=== PATIENT | male | born 2000 | race Caucasian/White ===

== ENCOUNTER 2024-04-28 17:47 | Emergency (ER) | payer SELFPAY ==
--- OUTSIDE RECORDS SUMMARY | 2024-04-28 17:50 | XMS REPORT | Continuity of Care Document ---
Author Name Unknown Address [address] [facility] [place] [address] [facility] thconnect Address [address] [facility] [address] [place] [address] Care Team Providers Care Registered Respiratory Therapist Name Role Phone PCP, PATIENT DOES NOT HAVE A Primary Care Physic dennys Unavailable FRANDY GOMEZ Attending Clinician Unavaila Frandy Valle Attending Clinician + [phone] BENITO GIBBS Attending Clinician Unavailable Benito Gibbs MD Attending Clinician [phone] GENO VELA Attending Clinician Unavailab Geno Arenas Attending Clinician [phone] SONIA JUÁREZ Attending Clinician Unavailab Sonia Napoles DO Attending Clinician [phone] JESUS RENAE Attending Clinician Unavailable Jesus Paniagua Attending Clinician [phone] Lazaro Leyva Attending Clinician Unavailable Fernie Canela Attending Clinician [phone] Doctor Unassigned, [place] Attending Clinician Carlos Garcia DO Attending Clinician [phone] EBRAHIM, RANIA Admitting Clinician Unavailable Physician, No Primary or Family Admitting Clinic dennys Unavailable Payers Payer Name Policy Type Policy Number Effective Date Expirati on Date Source [facility] [id number] 2020 00:00:00 Problems Condition Name Condition Details Condition Category Status Onset Date Resolution Date Last Treatment Date Treating Clinician Comments Source Major depression , chronic Major depression , chronic Disease Active 05-21 00:00: [address] [facility] Anxiety Anxiety Disease Active 05-21 00:00: 00 [facility] Suicidal thoughts Suicidal thoughts Disease Active 05-21 00:00: 00 [facility] Allergies, Adverse Reactions, Alerts Allergy Name Allergy Type Status Severity Reaction(s) Onset Date Inactive Date Treating Clinician Comments Source No Known Allergie s DA Active U 01-07 00:00: 00 [facility] No Known Allergie s DA Active U 01-07 00:00: 00 [facility] Ibuprofe n Propensi ty to adverse reaction s Active Hives 05-11 00:00: 00 [facility] IBUPROFE N DRUG INGREDI Active Hives 05-11 00:00: 00 [facility] Social History Social Habit Start Date Stop Date Quantity Comments Source [facility] SDOH Alcohol Frequency [facility] History SDOH Alcohol Std Drinks [facility] History SDOH Alcohol Binge [facility] Alcoholic beverage intake 2023-12-14 00:00:00 2023-12-14 00:00:00 Current drinker of alcohol (finding) [facility] Exposure to SARS-CoV-2 (event) 2022-08-14 00:00:00 2022-08-24 00:36:00 Not sure [facility] Alcohol intake 2020-09-03 00:00:00 2020-09-03 00:00:00 Current drinker of alcohol (finding) [facility] History of Social function 2018-11-08 00:00:00 2018-11-08 00:00:00 [facility] Tobacco use and exposure 2018-05-11 00:00:00 2018-05-11 00:00:00 Smokeless tobacco non-user [facility] Alcohol Comment 2018-05-11 00:00:00 2018-05-11 00:00:00 one per week [facility] Sex assigned at 2000 00:00:00 2000 00:00:00 [facility] Smoking Status Start Date Stop Date Source Never smoked tobacco [facility] Medications Ordered Medication Name Filled Medication Name Start Date Stop Date Current Medication? Ordering Clinician Indication Dosage Frequency Signature (SIG) Comments Components Source famotidine (PEPCID (PF)) injection 20 mg 08-24 07:00: 00 08-24 07:05 :00 No 20mg 20 mg, Slow IV Push, ONCE, 1 dose, On Mon08/24/22 at 0200[facility] diphen[facility]INE (BENADRYL) injection 25 mg 08-24 07:00: 00 08-24 07:05 :00 No 25mg 25 mg, Slow IV Push, ONCE, 1 dose, On Mon08/24/22 at 0200, STAT [facility] dexamethaso ne sod phos PF injection 10 mg 08-24 06:00: 00 08-24 06:03 :00 No 10mg 10 mg, Slow IV Push, ONCE, 1 dose, On Mon08/24/22 at 0100, 1 mL [facility] famotidine (PEPCID (PF)) injection 20 mg 08-24 06:00: 00 08-24 06:00 :00 No 20mg 20 mg, Slow IV Push, ONCE, 1 dose, [facility]08[facility]24/[facility] (BENADRYL) [facility] 25 mg 08-24 06:00: 00 08-24 06:02 :00 No 25mg 25 mg, Slow IV Push, ONCE, 1 dose, On Mon08/24/22 at 0100, STAT [facility] predniSONE 20 mg tablet 08-24 00:00: 00 Yes [id number] Take 1 tablet by mouth daily until gone [facility] iopamidol (ISOVUE 370-500 mL) injection 60 mL 11-26 21:15: 00 11-26 19:55 :00 No [id number] 60mL 60 mL, Intravenou s, ONCE, 1 dose, On Mon11/26/21 at 1615, Routine [facility] NaCl 0.9% (NS) bolus infusion 1,000 mL 11-26 19:15: 00 11-26 19:19 :00 No 1000mL at 999 mL/hr, 1,000 mL, IV Infusion, ONCE, 1 dose, On Mon11/26/21 at 1415[facility] famotidine (PEPCID (PF)) injection 20 mg 11-26 18:15: 00 11-26 18:21 :00 No 20mg 20 mg, Slow IV Push, ONCE, 1 dose, On Mon11/26/21 at 1315, [facility] maalox:diph enhydrAMINE :lidocaine 2 % viscous 1:1:1 ([facility] oral suspension 15 mL 11-26 18:15: 00 11-26 18:22 :00 No 15mL 15 mL, Oral, ONCE, 1 dose, On Mon11/26/21 at 1315, Routine [facility] ondansetron (ZOFRAN (PF)) injection 4 mg 11-26 18:15: 00 11-26 18:21 :00 No 4mg 4 mg, Slow IV Push, ONCE, 1 dose, On Mon11/26/21 at 1315, [facility] dicyclomine 10 mg capsule 11-26 00:00: 00 12-04 04:59 :00 No [id number] 10mg Take 1 capsule by mouth 4 (four) times daily for 7 days. [facility] ondansetron 4 mg disintegrat ing tablet 11-26 00:00: 00 12-02 04:59 :00 No [id number] 4mg Take 1 tablet by mouth every 8 (eight) hours for 5 days. Univers y [facility] No known medications No Un carlene ity [facility] No known medications No Un carlene [facility] Vital Signs Vital Name Observation Time Observation Value Comments Pippa recinos Systolic blood pressure 2023-12-14 05:47:00 147 mm[Hg] [facility] Diastolic blood pressure 2023-12-14 05:47:00 91 mm[Hg] [facility] Heart rate 2023-12-14 05:47:00 86 /min [facility] Body temperature 2023-12-14 05:47:00 36.5 Cat [facility] Respiratory rate 2023-12-14 05:47:00 18 /min [facility] Body height 2023-12-14 05:47:00 167.6 cm [facility] Body weight 2023-12-14 05:47:00 140.615 kg [facility] BMI 2023-12-14 05:47:00 50.04 kg/m2 [facility] Oxygen saturation in Arterial blood by Pulse oximetry 2023-12-14 05:47:00 100 /min [facility] Systolic blood pressure 2023-05-29 18:55:23 141 mm[Hg] [facility] Diastolic blood pressure 2023-05-29 18:55:23 73 mm[Hg] [facility] Heart rate 2023-05-29 18:55:23 78 /min [facility] Respiratory rate 2023-05-29 18:55:23 16 /min [facility] Oxygen saturation in Arterial blood by Pulse oximetry 2023-05-29 18:55:23 99 /min [facility] Body temperature 2023-05-29 16:24:00 36.72 Cat [facility] Body height 2023-05-29 16:24:00 167.6 cm [facility] Body weight 2023-05-29 16:24:00 138.801 kg [facility] BMI 2023-05-29 16:24:00 49.39 kg/m2 [facility] Systolic blood pressure 2022-10-23 16:20:00 118 mm[Hg] [facility] Diastolic blood pressure 2022-10-23 16:20:00 78 mm[Hg] [facility] Heart rate 2022-10-23 16:20:00 88 /min [facility] Respiratory rate 2022-10-23 16:20:00 20 /min [facility] Oxygen saturation in Arterial blood by Pulse oximetry 2022-10-23 16:20:00 99 /min [facility] Body temperature 2022-10-23 13:58:00 37.72 Cat [facility] Body height 2022-10-23 13:57:00 167.6 cm [facility] Body weight 2022-10-23 13:57:00 132.224 kg [facility] BMI 2022-10-23 13:57:00 47.05 kg/m2 [facility] Systolic blood pressure 2022-08-24 07:00:00 145 mm[Hg] [facility] Diastolic blood pressure 2022-08-24 07:00:00 90 mm[Hg] [facility] Heart rate 2022-08-24 07:00:00 86 /min [facility] Respiratory rate 2022-08-24 07:00:00 20 /min [facility] Oxygen saturation in Arterial blood by Pulse oximetry 2022-08-24 07:00:00 99 /min [facility] Body temperature 2022-08-24 05:39:00 37 Cat [facility] Body height 2022-08-24 05:39:00 167.6 cm [facility] Body weight 2022-08-24 05:39:00 140.706 kg [facility] BMI 2022-08-24 05:39:00 50.07 kg/m2 [facility] Systolic blood pressure 2021-11-26 20:00:00 130 mm[Hg] [facility] Diastolic blood pressure 2021-11-26 20:00:00 72 mm[Hg] [facility] Heart rate 2021-11-26 20:00:00 76 /min [facility] Respiratory rate 2021-11-26 20:00:00 18 /min [facility] Oxygen saturation in Arterial blood by Pulse oximetry 2021-11-26 20:00:00 99 /min [facility] Body temperature 2021-11-26 18:13:09 37.22 Cat [facility] Body height 2021-11-26 17:59:00 167.6 cm [facility] Body weight 2021-11-26 17:59:00 127.007 kg [facility] BMI 2021-11-26 17:59:00 45.19 kg/m2 [facility] Systolic blood pressure 2020-09-03 14:43:00 151 mm[Hg] [facility] Diastolic blood pressure 2020-09-03 14:43:00 109 mm[Hg] [facility] Heart rate 2020-09-03 14:43:00 92 /min [facility] Body temperature 2020-09-03 14:43:00 37.06 Cat [facility] Respiratory rate 2020-09-03 14:43:00 18 /min [facility] Body weight 2020-09-03 14:43:00 145.151 kg [facility] BMI 2020-09-03 14:43:00 51.65 kg/m2 [facility] Oxygen saturation in Arterial blood by Pulse oximetry 2020-09-03 14:43:00 99 /min [facility] Systolic blood pressure 2020-08-24 07:34:00 162 mm[Hg] [facility] Diastolic blood pressure 2020-08-24 07:34:00 109 mm[Hg] [facility] Heart rate 2020-08-24 07:34:00 123 /min [facility] Body temperature 2020-08-24 07:34:00 37.28 Cat [facility] Respiratory rate 2020-08-24 07:34:00 20 /min [facility] Body weight 2020-08-24 07:34:00 145.151 kg [facility] BMI 2020-08-24 07:34:00 51.65 kg/m2 [facility] Oxygen saturation in Arterial blood by Pulse oximetry 2020-08-24 07:34:00 99 /min [facility] Procedures Procedure Date / Time Performed Performing Clinician Source EKG-12 LEAD 2023-05-29 18:41:52 Benito Gibbs [facility] TROPONIN I 2023-05-29 17:34:00 Benito Gibbs [facility] BASIC METABOLIC PANEL (NA, K, CL, CO2, GLUCOSE, BUN, CREATININE, CA) 2023-05-29 17:34:00 Benito Gibbs [facility] CBC WITH DIFF 2023-05-29 17:34:00 Benito Gibbs [facility] ASSIGNMENT OF BENEFITS 2023-05-29 16:41:05 Docto r Unassigned, [place] [facility] CONSENT/REFUSAL FOR DIAGNOSIS AND TREATMENT 2023-05-29 16:22:27 Doctor Unassigned, [place] [facility] CREATINE KINASE 2022-10-23 14:47:00 Geno Vela [facility] TROPONIN I 2022-10-23 14:47:00 Geno Vela Un [facility] THYROID STIMULATING HORMONE 2022-10-23 14:47:00 Geno Vela [facility] COMP. METABOLIC PANEL ([id number]) 2022-10-23 14:47:00 Geno Vela [facility] CBC WITH DIFF 2022-10-23 14:47:00 [facility] FOR GROUP A 2022-10-23 14:47:00 Geno Vela [facility] COVID-19 (ID NOW RAPID TESTING) 2022-10-23 14:47:00 Geno Vela [facility] ASSIGNMENT OF BENEFITS 2022-10-23 14:29:44 Docto r Unassigned, [place] [facility] CONSENT/REFUSAL FOR DIAGNOSIS AND TREATMENT 2022-10-23 13:53:17 Doctor Unassigned, [place] [facility] NOTICE OF PRIVACY PRACTICES 2022-08-24 05:29:09 Doctor Unassigned, [place] [facility] CONSENT/REFUSAL FOR DIAGNOSIS AND TREATMENT 2022-08-24 05:28:35 Doctor Unassigned, [place] [facility] CT ABDOMEN PELVIS W CONTRAST 2021-11-26 20:00:19 Jesus Renae [facility] XR KUB 2021-11-26 18:33:23 Jesus Renae [facility] LIPASE 2021-11-26 18:15:00 [facility] COMP. METABOLIC PANEL ([id number]) 2021-11-26 [facility]:15[facility] 2021-11-26 18:15:00 Jesus Renae [facility] URINALYSIS 2021-11-26 18:15:00 [facility] COVID-19 (ID NOW RAPID TESTING) 2021-11-26 18:15[facility]00 [facility] FOR [facility]AGNOSIS AND TREATMENT 2021-11-26 17:53:24 Doctor Unassigned, [place] [facility] NOTICE OF PRIVACY PRACTICES 2020-09-03 14:35:20 Doctor Unassigned, [place] [facility] CONSENT/REFUSAL FOR DIAGNOSIS AND TREATMENT 2020-09-03 14:35:07 Doctor Unassigned, [place] [facility] [place] RESUPERF WND BODY 7.6-12.5 CM 2020-08-24 07:41:00 Carlos Jennings [facility] Encounters Start Date/Time End Date/Time Encounter Type Admission Type Attending Clinicians Care Facility Care Department Encounter ID Source 2021-02-28 17:28:36 Emergency [facility] [id number] [facility] 2021-02-28 15:08:59 Emergency [facility] [id number] [facility] 2023-12-14 01:22:00 2023-12-14 01:23:00 Emergency X FRANDY GOMEZ [facility] ERT [id number] [facility] 2023-12-14 01:22:00 2023-12-14 01:23:00 Emergency Florina Frandy [facility] [id number] 350.1.13.10 4.2.7.2.686 [id number] [facility] 2023-05-29 10:25:00 2023-05-29 12:57:00 Emergency X BENITO GIBBS [facility] ERT [id number] [facility] 2023-05-29 10:25:00 2023-05-29 12:57:00 Emergency Benito Gibbs [facility] [id number] 350.1.13.10 4.2.7.2.686 [id number] [facility] 2022-10-23 08:59:00 2022-10-23 11:24:00 Emergency X NANO VELAHA [facility] ERT [id number] [facility] 2022-10-23 08:59:00 2022-10-23 11:24:00 Emergency Geno Vela Kriss [facility] [id number] 350.1.13.10 4.2.7.2.686 [id number] [facility] 2022-08-24 00:42:00 2022-08-24 03:05:00 Emergency X SONIA JUÁREZ [facility] ERT [id number] [facility] 2022-08-24 00:42:00 2022-08-24 03:05:00 Emergency Jenn Sonia [facility] 1..840.114 350.1.13.10 4.2.7.2.686 [id number] [facility] 2021-11-26 13:00:00 2021-11-26 15:28:00 Emergency X JESUS RENAE [facility] ERT [id number] [facility] 2021-11-26 13:00:00 2021-11-26 15:28:00 Emergency Jesus Renae [facility] 1.2.840.114 350.1.13.10 4.2.7.2.686 [id number] [facility] 2021-01-07 13:17:00 2021-01-07 14:34:00 Emergency Lazaro Astorga [facility] [id number] [facility] 2020-09-03 09:49:00 2020-09-03 10:52:00 Emergency Fernie Connolly [facility] 1.2.840.114 350.1.13.10 4.2.7.2.686 [id number] [facility] 2020-09-03 00:00:00 2020-09-03 00:00:00 Orders Only Doctor Unassigned, [place] [facility] 1.2.840.114 350.1.13.10 4.2.7.2.686 [id number] [facility] 2020-08-24 02:33:00 2020-08-24 03:25:00 Emergency aCrlos Jennings [facility] 1.2.840.114 350.1.13.10 4.2.7.2.686 [id number] [facility] Results Test Description Test Time Test Comments Results Result Co mments Source [facility] (NA, K, CL, CO2, GLUCOSE, BUN, CREATININE, CA)2023-05-29 18:13:34* Test Item Value Reference Range Interpretation Comme nts NA (test code = 8110260543) 139 mmol/L 135-145 K (test code = 6674012126) 4.5 mmol/L 3.5-5.0 CL (test code = 3339020700) 101 mmol/L 98-108 CO2 TOTAL (test code = 6436888409) 30 mmol/L 23-31 AGAP (test code = 6064742555) 8 2-16 BUN (test code = 8576551505) 13 mg/dL 7-23 GLUCOSE (test code = 4405614377) 102 mg/dL 70-110 CREATININE (test code = 7905098160) 0.94 mg/dL 0.60-1.25 CALCIUM (test code = 1130762936) 9.2 mg/dL 8.6-10.6 eGFR (test code = 27371-9) 115.4 mL/min/1.73m2 CKD-EPI eGFR (20 21). Assuming creatinine has been stable day-to-day for at least three months, the eGFR indicates Category G1 (>= 90 mL/min/1.73 m2) [facility] WITH [id number] 18:04:12* Test Item Value Reference Range Interpretation Comme nts WBC (test code = 6690-2) 11.23 See_Comment H [Automated [employer]] The system which generated this result transmitted reference range: 4.20 - 10.70 10*3/?L. The reference range was not used to interpret this result as normal/abnormal. RBC (test code = 789-8) 5.52 See_Comment [Automated [employer]] The system which generated this result transmitted reference range: 4.26 - 5.52 10*6/?L. The reference range was not used to interpret this result as normal/abnormal. HGB (test code = 718-7) 13.7 g/dL 12.2-16.4 HCT (test code = 4544-3) 43.1 % 38.4-49.3 MCV (test code = 787-2) 78.1 fL 81.7-95.6 L MCH (test code = 785-6) 24.8 pg 26.1-32.7 L MCHC (test code = 786-4) 31.8 g/dL 31.2-35.0 RDW-SD (test code = 96002-7) 40.4 fL 38.5-51.6 RDW-CV (test code = 788-0) 14.5 % 12.1-15.4 PLT (test code = 777-3) 346 See_Comment H [Automated [employer]] The system which generated this result transmitted reference range: 150 - 328 10*3/?L. The reference range was not used to interpret this result as normal/abnormal. MPV (test code = 84220-7) 10.6 fL 9.8-13.0 NRBC/100 WBC (test code = 1293231187) 0.0 See_Comment [Automated me ssage] The system which generated this result transmitted reference range: 0.0 - 10.0 /100 WBCs. The reference range was not used to interpret this result as normal/abnormal. NRBC x10^3 (test code = 1472836712) See_Comment [Automated messa ge] The system which generated this result transmitted reference range: 10*3/?L. The reference range was not used to interpret this result as normal/abnormal. GRAN MAT (NEUT) % (test code = 770-8) 72.0 % IMM GRAN % (test code = 9467204226) 0.50 % LYMPH % (test code = 736-9) 19.4 % MONO % (test code = 5905-5) 6.6 % EOS % (test code = 713-8) 1.0 % BASO % (test code = 706-2) 0.5 % GRAN MAT x10^3(ANC) (test code = 7445702987) 8.08 10*3/uL 1.99-6.95 H IMM GRAN x10^3 (test code = 0017997068) 0.06 10*3/uL 0.00-0.06 LYMPH x10^3 (test code = 731-0) 2.18 10*3/uL 1.09-3.23 MONO x10^3 (test code = 742-7) 0.74 10*3/uL 0.36-1.02 EOS x10^3 (test code = 711-2) 0.11 10*3/uL 0.06-0.53 BASO x10^3 (test code = 704-7) 0.06 10*3/uL 0.01-0.09 Lab Interpretation (test code = 00243-0) Abnormal [facility] [id number] 16:00:34* Test Item Value Reference Range Interpretation Comme nts CK (test code = 8287179186) 80 U/L 33-194 Lab Interpretation (test cod e = 06589-6) Normal [facility] [id number] 15:57:18 * Test Item Value Reference Range Interpretation Comme nts TSH (test code = 0545779174) 1.84 See_Comment [Automated messa ge] The system which generated this result transmitted reference range: 0.45 - 4.70 mIU/L. The reference range was not used to interpret this result as normal/abnormal. Lab Interpretation (test code = 63504-9) Normal [facility] [id number] 15:38:35* Test Item Value Reference Range Interpretation Comme nts TROPONIN I (test code = 2254433838) 0.001 ng/mL <=0.034 ROBERTO CARLOS (test code = ROBERTO CARLOS) Reference (Normal) Range (defined by the 99th percentile reference limit): <= 0.034 ng/mL Note: Cardiac troponin begins to rise 3-4 hours after the onset of ischemia. Repeat in 4-6 hours if the sample was drawn within 3-4 hours of the onset of the symptom and found normal. Diagnosis of myocardial injury is made with acute changes in cTn concentrations with at least one serial sample above the 99th percentile upper reference limit (URL), taken together with the patient's clinical presentation. Biotin has been reported to cause a negative bias, interpret results relative to patient's use of biotin. Lab Interpretation (test code = 03680-0) [facility] (12366)2022-10-23 15:28:36* Test Item Value Reference Range Interpretation Comme nts NA (test code = 1491642422) 137 mmol/L 135-145 K (test code = 8168315090) 4.1 mmol/L 3.5-5.0 CL (test code = 1253774550) 99 mmol/L 98-108 CO2 TOTAL (test code = 1024697407) 28 mmol/L 23-31 AGAP (test code = 0060729341) 10 2-16 BUN (test code = 4181619671) 12 mg/dL 7-23 GLUCOSE (test code = 5159616845) 93 mg/dL 70-110 CREATININE (test code = 9773013238) 1.02 mg/dL 0.60-1.25 TOTAL BILI (test code = 2287886627) 0.5 mg/dL 0.1-1.1 CALCIUM (test code = 2178484913) 8.7 mg/dL 8.6-10.6 T PROTEIN (test code = 0922579264) 7.5 g/dL 6.3-8.2 ALBUMIN (test code = 1534857952) 4.0 g/dL 3.5-5.0 ALK PHOS (test code = 1044090122) 54 U/L 34-122 ALTv (test code = 1742-6) 28 U/L 5-50 AST(SGOT) (test code = 5051479537) 29 U/L 13-40 eGFR (test code = 5435735066) 89.7 mL/min/1.73m2 ROBERTO CARLOS (test code = ROBERTO CARLOS) Association of Glomerular Filtration Rate (GFR) and Staging of Kidney Disease* + + +- +| GFR (mL/min/1.73 m2) ?| With Kidney Damage ?| ?Without Kidney Damage+ ------+ ----+ ------+| ?>90 ?| ?Stage one ?| ? Normal ?+ -+ + -+| ?60-89 ?| ?Stage two ?| ? Decreased GFR ? + + +- +| ?30-59 ?| ?Stage three ?| ? Stage three ? + + +- +| ?15-29 ?| ?Stage four ? | ? Stage four ?+ -+ + -+| ?<15 (or dialysis) ? ?| ?Stage five ? | ? Stage five ?+ -+ + -+ *Each stage assumes the associated GFR level has been in effect for at least three months. ?Stages 1 to 5, with or without kidney disease, indicate chronic kidney disease. Notes: Determination of stages one and two (with eGFR >59mL/min/1.73 m2) requires estimation of kidney damage for at least three months as defined by structural or functional abnormalities of the kidney, manifested by either:Pathological abnormalities or Markers of kidney damage (including abnormalities in the composition of the blood or urine or abnormalities in imaging tests). [facility] WITH [id number] 15:12:13* Test Item Value Reference Range Interpretation Comme nts WBC (test code = 6690-2) 13.56 See_Comment H [Automated messa ge] The system which generated this result transmitted reference range: 4.20 - 10.70 10*3/?L. The reference range was not used to interpret this result as normal/abnormal. RBC (test code = 789-8) 5.13 See_Comment [Automated messa ge] The system which generated this result transmitted reference range: 4.26 - 5.52 10*6/?L. The reference range was not used to interpret this result as normal/abnormal. HGB (test code = 718-7) 13.4 g/dL 12.2-16.4 HCT (test code = 4544-3) 41.4 % 38.4-49.3 MCV (test code = 787-2) 80.7 fL 81.7-95.6 L MCH (test code = 785-6) 26.1 pg 26.1-32.7 MCHC (test code = 786-4) 32.4 g/dL 31.2-35.0 RDW-SD (test code = 45830-2) 40.8 fL 38.5-51.6 RDW-CV (test code = 788-0) 14.0 % 12.1-15.4 PLT (test code = 777-3) 303 See_Comment [Automated messa ge] The system which generated this result transmitted reference range: 150 - 328 10*3/?L. The reference range was not used to interpret this result as normal/abnormal. MPV (test code = 69511-8) 11.4 fL 9.8-13.0 NRBC/100 WBC (test code = 5657923565) 0.0 See_Comment [Automated [employer] ssage] The system which generated this result transmitted reference range: 0.0 - 10.0 /100 WBCs. The reference range was not used to interpret this result as normal/abnormal. NRBC x10^3 (test code = 8685194937) See_Comment [Automated messa ge] The system which generated this result transmitted reference range: 10*3/?L. The reference range was not used to interpret this result as normal/abnormal. GRAN MAT (NEUT) % (test code = 770-8) 68.2 % IMM GRAN % (test code = 7517771428) 0.50 % LYMPH % (test code = 736-9) 20.1 % MONO % (test code = 5905-5) 9.9 % EOS % (test code = 713-8) 0.9 % BASO % (test code = 706-2) 0.4 % GRAN MAT x10^3(ANC) (test code = 3039024588) 9.26 10*3/uL 1.99-6.95 H IMM GRAN x10^3 (test code = 8199371889) 0.07 10*3/uL 0.00-0.06 H LYMPH x10^3 (test code = 731-0) 2.72 10*3/uL 1.09-3.23 MONO x10^3 (test code = 742-7) 1.34 10*3/uL 0.36-1.02 H EOS x10^3 (test code = 711-2) 0.12 10*3/uL 0.06-0.53 BASO x10^3 (test code = 704-7) 0.05 10*3/uL 0.01-0.09 Lab Interpretation (test code = 94119-9) Abnormal [facility] [id number] 07:41:00Carlos Jennings DO ? ? 08/24/2020 ?2:44 AMLaceration RepairPerformed by: Carlos Jennings DOAuthorized by: Carlos Jennings DO Consent: ?Consent obtained: ?Verbal ?Consent given by: ?Patient ?Risks discussed: ?Infection, need for additional repair, nerve damage, poor cosmetic result, pain and poor wound healing ?Alternatives discussed: ?No treatmentAnesthesia (see MAR for exact dosages): ?Anesthesia method: ?Local infiltration ?Local anesthetic: ?Lidocaine 1% WITH epiLaceration details: ?Location: ?Leg ?Leg location: ?L lower leg ?Length (cm): ?8 ?Depth (mm): ?5Repair type: ?Repair type: ?SimpleExploration: ?Wound extent: no foreign bodies/material noted, no muscle damage noted and no vascular damage noted ?Treatment: ?Area cleansed with: ?HibiclensSkin repair: ?Repair method: ?Sullivan ?Number of cornelius: ?7Approximation: ?Approximation: ?ClosePost-procedure details: ?Dressing: ?Antibiotic ointment and sterile dressing ?Patient tolerance of procedure: ?Tolerated well, no immediate comp licationsUnDell Children's Medical Center"
[2024-04-28 19:03] LABS: SARS-CoV-2 Antigen CONTROL BLUE LINE VIS/BG OK; SARS-CoV-2 Antigen Rapid Res Negative (Negative)
--- NOTE | 2024-04-28 19:13 | ER ---
Nurse's Notes [facility] Name: Nicanor Mckoy Jr Age: 24 yrs Sex: Male : 2000 Arrival Date: 04/28/2024 Time: 17:47 Bed IW1 Private MD: Diagnosis: Acute upper respiratory infection, unspecified Presentation: 04/28 18:02 Chief complaint: Patient states: x6 days sore throat, cough, congestion, subjective tm6 fever, chills, body aches. Coronavirus screen: Client denies travel out of the [place] in the last 14 days. Ebola Screen: Patient negative for fever greater than or equal to 101.5 degrees Fahrenheit, and additional compatible Ebola Virus Disease symptoms Patient denies exposure to infectious person. Patient denies travel to an Ebola-affected area in the 21 days before illness onset. No symptoms or risks identified at this time. Initial Sepsis Screen: Does the patient meet any 2 criteria? No. Patient's initial sepsis screen is negative. Does the patient have a suspected source of infection? No. Patient's initial sepsis screen is negative. Risk Assessment: Do you want to hurt yourself or someone else? Patient reports no desire to harm self or others. Onset of symptoms was April 22, 2024. 18:02 Method Of Arrival: Ambulatory tm6 18:02 Acuity: CADENCE 4 tm6 Triage Assessment: 18:02 General: Appears in no apparent distress. Behavior is calm, cooperative. Pain: tm6 Complains of pain in body aches. EENT: No signs and/or symptoms were reported regarding the EENT system. EENT: Reports nasal congestion nasal discharge. Neuro: Level of Consciousness is awake, alert, obeys commands, Oriented to person, place, time, situation. Cardiovascular: Patient's skin is warm and dry. Respiratory: Reports cough that is Airway is patent Respiratory effort is even, unlabored, Respiratory pattern is regular, symmetrical. GI: No signs and/or symptoms were reported involving the gastrointestinal system. Abdomen is round. : No signs and/or symptoms were reported regarding the genitourinary system. Derm: No signs and/or symptoms reported regarding the dermatologic system. Musculoskeletal: Reports body aches. Historical: - Allergies: 18:02 Ibuprofen; tm6 - PMHx: 18:02 Anxiety; BORDERLINE PERSONALITY DISORDER; depressive disorder; insomnia; tm6 - PSHx: 18:02 None; tm6 - Immunization history:: Flu vaccine is not up to date. - Infectious Disease History:: Denies. - Social history:: Smoking status: Reported history of juuling and/or vaping. Screenin:23 [facility] ED Fall Risk Assessment (Adult) History of falling in the last 3 months, tm6 including since admission No falls in past 3 months (0 pts) Confusion or Disorientation No (0 pts) Intoxicated or Sedated No (0 pts) Impaired Gait No (0 pts) Mobility Assist Device Used No (0 pt) Altered Elimination No (0 pt) Score/Fall Risk Level 0 - 2 = Low Risk Oriented to surroundings, Maintained a safe environment, Educated pt \T\ family on fall prevention, incl call for assistance when getting out of bed. Abuse screen: Denies threats or abuse. Denies injuries from another. Nutritional screening: No deficits noted. Tuberculosis screening: No symptoms or risk factors identified. Assessment: 19:23 Reassessment: see triage assessment. tm6 Vital Signs: 18:01 Temp 98.4(O); Weight 138.35 kg; Height 5 ft. 6 in. ; Pain 0/10; tm6 18:02 BP 129 / 77; Pulse 80; Resp 18; Pulse Ox 100% on R/A; MAP 92 mmHg; tm6 19:23 BP 125 / 75; Pulse 81; Resp 18; Temp 98.4; Pulse Ox 100% on R/A; tm6 18:01 Body Mass Index 49.23 (138.35 kg, 167.64 cm) tm6 18:01 Pain Scale: Adult tm6 ED Course: 17:50 Patient arrived in ED. im 17:50 Ellen Echeverria FNP-C is [facility]. kb 17:51 Alex Soto MD is Attending Physician. kb 18:02 Arm band placed on right wrist. tm6 18:03 Triage completed. tm6 18:23 Strep Sent. tm6 18:23 SARS-COV-2 Antigen Rapid Sent. tm6 18:23 Flu Sent. tm6 19:23 Patient has correct armband on for positive identification. Provided Education on: use tm6 of prescription med. 19:23 No provider procedures requiring assistance completed. Patient did not have IV access tm6 during this emergency room visit. Administered Medications: No medications were administered Medication: 19:23 VIS not applicable for this client. tm6 Outcome: 19:13 Discharge ordered by . evy 19:23 Discharged to home ambulatory, tm6 19:23 Condition: stable 19:23 Discharge instructions given to patient, Instructed on discharge instructions, follow up and referral plans. medication usage, Demonstrated understanding of instructions, follow-up care, medications, Prescriptions given X 1, 19:24 Patient left the ED. tm6 Signatures: Ellen Echeverria FNP-C FNP-Payton Doan Tawney, RN RN tm6
--- NOTE | 2024-04-28 19:13 | EDPHYS ---
Physician Documentation [facility] Name: Nicanor Mckoy Jr Age: 24 yrs Sex: Male : 2000 Arrival Date: 04/28/2024 Time: 17:47 Bed IW1 Private MD: ED Physician Alex Soto HPI: 04/28 18:00 This 24 yrs old Male presents to ER via Unassigned with complaints of Flu Symptoms. kb 18:00 Pt is a 24 year old male who presents for cough, congestion, subjective fever, chills, kb bodyaches, malaise and sore throat that started 6 days ago. States he has been trying a lot of OTC medications without relief. No aggravating or alleviating factors. Historical: - Allergies: 18:02 Ibuprofen; tm6 - PMHx: 18:02 Anxiety; BORDERLINE PERSONALITY DISORDER; depressive disorder; insomnia; tm6 - PSHx: 18:02 None; tm6 - Immunization history:: Flu vaccine is not up to date. - Infectious Disease History:: Denies. - Social history:: Smoking status: Reported history of juuling and/or vaping. ROS: 18:00 Constitutional: As per HPI kb Exam: 18:00 Constitutional: This is a well developed, well nourished patient who is awake, alert, kb and in no acute distress. Head/Face: Normocephalic, atraumatic. ENT: Moist Mucous membranes Cardiovascular: Regular rate Respiratory: Respirations even and unlabored. No increased work of breathing. Talking in full sentences Skin: Warm, dry with normal turgor. Normal color. MS/ Extremity: Pulses equal, no cyanosis. Neurovascular intact. Full, normal range of motion. Neuro: Awake and alert, GCS 15, oriented to person, place, time, and situation. 18:00 ENT: External ear(s): are unremarkable, Ear canal(s): are normal, TM's: are normal, Posterior pharynx: is normal, Vital Signs: 18:01 Temp 98.4(O); Weight 138.35 kg; Height 5 ft. 6 in. ; Pain 0/10; tm6 18:02 BP 129 / 77; Pulse 80; Resp 18; Pulse Ox 100% on R/A; MAP 92 mmHg; tm6 19:23 BP 125 / 75; Pulse 81; Resp 18; Temp 98.4; Pulse Ox 100% on R/A; tm6 18:01 Body Mass Index 49.23 (138.35 kg, 167.64 cm) tm6 18:01 Pain Scale: Adult tm6 MDM: 17:51 Medical Screening Exam initiated kb 18:01 Differential diagnosis: flu, covid, uri, strep. Data reviewed: vital signs, nurses kb notes. Test considered but Not performed: X-ray: chest xray considered but lungs clear bilaterally, no resp distress. 19:13 Counseling: I had a detailed discussion with the patient and/or guardian regarding the kb historical points, exam findings, and any diagnostic results supporting the discharge/admit diagnosis, lab results, the need for outpatient follow up, a family practitioner, to return to the emergency department if symptoms worsen or persist or if there are any questions or concerns that arise at home. 04/28 18:00 Order name: Flu; Complete Time: 19:13 kb 04/28 18:00 Order name: SARS-COV-2 Antigen Rapid; Complete Time: 19:13 kb 04/28 18:00 Order name: Strep; Complete Time: 19:13 kb 04/28 19:06 Order name: Throat Culture EDMS Administered Medications: No medications were administered Disposition: 19:48 Co-signature as Attending Physician, Alex Soto MD I reviewed the patient's care rn provided by the Advanced Practice Provider and agree with the diagnosis and treatment plan. Disposition Summary: 04/28/24 19:13 Discharge Ordered Notes: Location: Home kb Condition: Stable kb Diagnosis - Acute upper respiratory infection, unspecified kb Followup: kb - With: Emergency Department - When: As needed - Reason: Worsening of condition Followup: kb - With: Private Physician - When: 2 - 3 days - Reason: Recheck today's complaints, Continuance of care, Re-evaluation by your physician Discharge Instructions: - Discharge Summary Sheet kb - Upper Respiratory Infection, Adult, [id number] kb Forms: - Medication Reconciliation Form kb - Antibiotic Education kb - Prescription Opioid Use kb - Patient Portal Instructions kb - Leadership Thank You Letter kb - Work release form tm6 Prescriptions: - Tessalon Perles 100 mg Oral Capsule - take 1 capsule ORAL route every 8 hours As needed; 15 capsule; Refills: 0, kb Product Selection Permitted Signatures: Dispatcher [employer] EDMS Ellen Echeverria SWIMMING COACH-C SWIMMING COACH-Ckb Alex Soto MD MD rn Henry Soriano RN RN tm6
[2024-04-28 19:30] VITALS: TEMP 98.4
[2024-04-28 19:32] VITALS: O2SAT 100
[2024-04-28 19:33] VITALS: BP 125/75
== END 2024-04-28 19:24 | disposition home or self-care (01) ==
LOC: ER 17:47
DX: J06.9 Acute upper respiratory infection, unspecified (principal); Z11.52 Encounter for screening for COVID-19
CPT/HCPCS: 36415; 87070; 87081; 87804; 87811; 99283